=== PATIENT | female | born 1980 | race Caucasian/White ===

== ENCOUNTER 2024-06-12 15:23 | Outpatient (CLI) | payer OTHER, SELFPAY ==
--- NOTE | ~2024-06-12 | MM_ITS ---
EXAMINATION: MM screening rachel BI w gloria HISTORY: Screening TECHNIQUE: Craniocaudal and mediolateral oblique 3-D tomosynthesis images were obtained and synthetic 2-D images were generated. CAD analysis was submitted and interpreted. COMPARISON: No prior mammogram is available for comparison at this institution. BREAST PARENCHYMAL COMPOSITION: Dense: The breasts are heterogeneously dense, which may obscure small masses FINDINGS: There are asymmetries in the upper central aspect of the right breast in the upper outer qu adrant of the left breast. There are no suspicious calcifications or skin thickening. IMPRESSION: 1. Bilateral asymmetries. 2. Comparison to previous outside mammograms recommended. BI-RADS Category 0: Incomplete: Needs additional imaging evaluation. Reviewed, dictated and finalized at location B.
== END 2024-06-12 15:24 | disposition home or self-care (01) ==
PROVIDERS: PCP Internal Medicine; Visit Provider Internal Medicine
DX: Z12.31 Encounter for screening mammogram for malignant neoplasm of breast (principal); R92.8 Other abnormal and inconclusive findings on diagnostic imaging of breast
CPT/HCPCS: 77063; 77067

== ENCOUNTER 2024-07-28 10:30 | Outpatient (CLI) | payer OTHER, SELFPAY ==
--- NOTE | ~2024-07-28 | MMUS_ITS ---
EXAMINATION: MM diagnostic rachel BI w gloria, US breast BI complete HISTORY: Bilateral breast asymmetry follow-up TECHNIQUE: Additional 3-D tomosynthesis images of the breasts were performed and synthetic 2-D images were generated. CAD analysis was submitted and interpreted. High resolution bilateral complete breas t ultrasound was performed. COMPARISON: Comparison to multiple prior studies sequentially, with oldest reviewed study dated 02/15. BREAST PARENCHYMAL COMPOSITION: Dense: The breasts are heterogeneously dense, which may obscure small masses FINDINGS: MAMMOGRAPHIC FINDINGS: There are no suspicious discrete masses, calcifications or architectural distortion. Bilateral breast asymmetries are less dense with spot compression views, consistent with superimposed fibroglandular tissue. ULTRASOUND: Complete US of all 4 quadrants of the breast/s and retroareolar region was reviewed. Normal heterogen eous echotexture without focal solid or cystic mass. IMPRESSION: 1. No evidence for malignancy in either breast. 2. Routine yearly screening mammogram and regular clinical breast examination are recommended. BI-RADS Category 1: Negative Reviewed, dictated and finalized at location B. IMPRESSION: 1. No evidence for malignancy in either breast. 2. Routine yearly screening mammogram and regular clinical breast examination a re recommended. BI-RADS Category 1: Negative
== END 2024-07-28 10:31 | disposition home or self-care (01) ==
PROVIDERS: PCP Internal Medicine; Visit Provider Internal Medicine
DX: R92.8 Other abnormal and inconclusive findings on diagnostic imaging of breast (principal)
CPT/HCPCS: 76641; 77062; 77066; G0279